=== PATIENT | female | born 1990 | race Caucasian/White ===

== ENCOUNTER 2018-10-31 06:22 | Inpatient (IN) | payer OTHER ==
--- NOTE | 2018-10-31 06:20 | PDOC.LDHP ---
Labor and Delivery H&P Chief complaint: scheduled induction Current gestational age (weeks): 39 Due date: 11/05/18 Grav: 2 Para: 1 Current complications: gestational diabetes Abnormal US findings: No Current medications: pre-donal vitamins Social history: none - Physical Exam Vital signs reviewed and normal: yes General: NAD, resting Heart: RRR Lungs: CTAB Abdomen: gravid Extremeties: no edema FHT: category 1 - Assessment L&D Assessment: medically indicated induction - Plan Plan: admit to L&D, cervical ripening
[~2018-10-31 06:22] MED LIST: Butorphanol Tartrate 1 MG/ML VIAL SLOW IVP PRN; Carboprost 250 MCG/ML AMP IM PRN; Diphenoxylate HCl/Atropine Tablet PO PRN; Docusate 100 MG CAP PO PRN; HYDROcodone/Acetaminophen 5/325 mg Tablet PO PRN; Lidocaine 1% (PF) 30 ML VIAL SC PRN; Methylergonovine 0.2 MG/ML VIAL IM PRN; Misoprostol 200 MCG TAB PR PRN; NS w/ Oxytocin 10 units 500 ML IV SCH; Ondansetron PF 4 MG/2 ML Vial IVP PRN; Promethazine HCl 25 MG/ML VIAL IM PRN
[2018-10-31 07:23] VITALS: BMI 28.7
[2018-10-31] MEDS: Lactated Ringer's 1,000 ML IV SCH ×2 (07:24→11:41)
[2018-10-31] MEDS ORDERED: NS w/ Oxytocin 10 units 500 ML ONE (07:47)
[2018-10-31 08:00] LABS: Hemoglobin 11.2 g/dL (12.0-16.0); Mean Corpuscular HGB CONC 32.1 g/dL (32.0-36.0); Mean Corpuscular Hemoglobin 26.2 pg (27.0-31.0); Mean Corpuscular Volume 81.7 fL (78.0-98.0); Platelet Count 327 thou/uL (130-400); RBC Distribution Width 13.3 % (11.5-14.5); Red Blood Cell (RBC) Count 4.26 mill/uL (4.20-5.40); White Blood Cell (WBC) Count 14.7 thou/uL (4.8-10.8)
[2018-10-31 08:25] LABS: HBSAg Index 0.28 S/CO (0-0.99); Hep B Surf Ag Non-Reactive S/CO (NonReactive)
[2018-10-31 08:27] LABS: Syphilis Antibody Nonreactive (Nonreactive); Syphilis Antibody Index 0.05 S/CO (<1.00 Non-Reactive)
[2018-10-31] MEDS ORDERED: Fentanyl 4 mcg/Bup 0.1% Cadd 100 ML ONE (11:21)
[2018-10-31] MEDS ORDERED: Lactated Ringer's 500 ML IV PRN (11:43)
[2018-10-31] MEDS ORDERED: diphenhydrAMINE 50 MG/ML VIAL IVP PRN (11:43)
[2018-10-31] MEDS ORDERED: Promethazine HCl 25 MG/ML VIAL IM PRN ×2 (11:43→16:02)
[2018-10-31] MEDS ORDERED: Ondansetron PF 4 MG/2 ML Vial IVP PRN ×2 (11:43→16:02)
[2018-10-31] MEDS ORDERED: Acetaminophen 325 MG TAB PO PRN (11:43)
[2018-10-31] MEDS ORDERED: Eucerin (Mineral Oil/Petrolatum,White) 30 gm Jar TOP PRN (11:43)
[2018-10-31] MEDS ORDERED: ePHEDrine/0.9% NaCl/PF SYRINGE 50 mg/10 ml SLOW IVP PRN (11:43)
[2018-10-31] MEDS ORDERED: Naloxone HCl 0.4 mg/ml Vial IVP PRN ×2 (11:43)
[2018-10-31] MEDS ORDERED: Communication Order-Pharmacy FS SCH (11:45)
[2018-10-31] MEDS ORDERED: Fentanyl 4 mcg/Bupivacaine 0.1% Cassette 100 ML EPIDURAL SCH (11:45)
[2018-10-31] MEDS: NS / Oxytocin 40 units/1000ml 1,000 ML IV PRN ×2 (14:21→19:08)
[2018-10-31] MEDS ORDERED: Benzocaine-Menthol 82.5 ML CAN TOP PRN (16:02)
[2018-10-31] MEDS ORDERED: diphenhydrAMINE 25 MG CAP PO PRN (16:02)
[2018-10-31] MEDS ORDERED: Lanolin Ointment 7 GM TUBE TOP PRN (16:02)
[2018-10-31] MEDS ORDERED: Methylergonovine 0.2 MG/ML VIAL IM PRN (16:02)
[2018-10-31] MEDS ORDERED: Misoprostol 200 MCG TAB VAG PRN (16:02)
[2018-10-31] MEDS ORDERED: Milk Of Magnesia 30 ML UDCUP PO PRN (16:02)
[2018-10-31] MEDS ORDERED: NS / Oxytocin 40 units/1000ml 1,000 ML IV SCH (16:02)
[2018-10-31] MEDS ORDERED: Preparation H Ointment 28 GM TUBE PR PRN (16:02)
[2018-10-31] MEDS ORDERED: HYDROcodone/Acetaminophen 5/325 mg Tablet PO PRN ×2 (16:02)
[2018-10-31] MEDS ORDERED: Bisacodyl 10 MG SUPP PR PRN (16:02)
[2018-10-31] MEDS: Ferrous Sulfate 325 MG TAB PO SCH (17:58)
[2018-10-31] MEDS: Docusate Calcium (SURFAK) 240 MG CAP PO SCH (21:00)
[2018-10-31] MEDS: Ibuprofen 800 MG TAB PO SCH (21:00)
[2018-11-01 05:54] LABS: Hemoglobin 10.4 g/dL (12.0-16.0); Mean Corpuscular HGB CONC 31.3 g/dL (32.0-36.0); Mean Corpuscular Hemoglobin 26.5 pg (27.0-31.0); Mean Corpuscular Volume 84.6 fL (78.0-98.0); Mean Platelet Volume 7.1 fL (7.4-10.4); Platelet Count 291 thou/uL (130-400); RBC Distribution Width 13.3 % (11.5-14.5); Red Blood Cell (RBC) Count 3.95 mill/uL (4.20-5.40); White Blood Cell (WBC) Count 14.9 thou/uL (4.8-10.8)
[2018-11-01] MEDS: Ferrous Sulfate 325 MG TAB PO SCH ×2 (07:27→17:08)
[2018-11-01] MEDS ORDERED: Prenatal Vitamin 1 TAB PO SCH (09:00)
[2018-11-01] MEDS ORDERED: Adacel (T-DAP) 0.5 ML SYRINGE IM ONE (09:00)
[2018-11-01] MEDS ORDERED: Varicella virus, LIVE 0.5 ML VIAL SC ONE (09:00)
[2018-11-01] MEDS ORDERED: Measles/Mumps/Rubella 10 MCG/0.5 ML VIAL SC ONE (09:00)
[2018-11-01] MEDS: Ibuprofen 800 MG TAB PO SCH ×2 (09:30→17:09)
[2018-11-01] MEDS: Docusate Calcium (SURFAK) 240 MG CAP PO SCH (09:30)
--- NOTE | 2018-11-01 11:21 | PDOC.PP ---
Post Progress Note Post Day #: 1 PO intake tolerated: yes Flatus: yes Ambulation: yes Vital Signs (12 hours) Temp Pulse Resp BP Pulse Ox 11/01/18 08:00 98.1 F 72 20 117/67 98 11/01/18 03:47 97.8 F 81 18 127/66 10/31/18 23:49 97.7 F 77 18 100/55 L Weight Weight 162 lb - Physical Examination General: NAD Cardiovascular: no m/r/g, RRR Respiratory: clear to auscultation bilaterally Abdominal: + bowel sounds, lochia, no distention Extremities: negative homans (B) Neurological: no gross focal deficits Psychiatric: A&Ox3, normal affect Result Diagrams: 11/01/18 04:57 Additional Labs: Post Labs Blood Type A POSITIVE 10/31/18 08:38 Hep Bs Antigen Non-Reactive S/CO (NonReactive) 10/31/18 07:33
[2018-11-01 11:45] VITALS: BP 114/59; TEMP 98.6
== END 2018-11-01 17:55 | disposition home or self-care (01) | DRG 807 ==
LOC: L&D 06:22 → 3SW 17:04
PROVIDERS: ADMIT Obstetrics & Gynecology; ATTEND Obstetrics & Gynecology
PROC: 10E0XZZ Delivery of Products of Conception, External Approach (ICD-10-PCS; principal; 2018-10-31)
PROC: 3E033VJ Introduction of Other Hormone into Peripheral Vein, Percutaneous Approach (ICD-10-PCS; 2018-10-31)
PROC: 10907ZC Drainage of Amniotic Fluid, Therapeutic from Products of Conception, Via Natural or Artificial Opening (ICD-10-PCS; 2018-10-31)
DX: O24.429 Gestational diabetes mellitus in childbirth, unspecified control (principal); Z37.0 Single live birth; Z3A.39 39 weeks gestation of pregnancy; O69.81X0 Labor and delivery complicated by cord around neck, without compression, not applicable or unspecified
CPT/HCPCS: 36415; 51702; 85027; 86780; 86850; 86900; 86901; 87340; J2590